=== PATIENT | male | born 1955 | race Caucasian/White ===

== ENCOUNTER 2016-10-04 20:07 | Emergency (ER) | payer OTHER ==
[2016-10-04 20:32] VITALS: BP 147/78
--- NOTE | 2016-10-04 20:56 | EDM.PDOC ---
ED HPI GENERAL MEDICAL PROBLEM - General Chief Complaint: Lower Extremity Injury/Pain Stated Complaint: RIGHT LEG INJURY Time Seen by Provider: 10/04/16 20:19 Source of Information: Reports: Patient History Limitations: Reports: No Limitations - History of Present Illness INITIAL COMMENTS - FREE TEXT/NARRATIVE: This is a 61 year old male. Was roping a calf and the calf got around the back side of him and the horse and he let the rope go and slide off to the side of the saddle and hooked his right leg over the saddle and felt a pop in his right hamstring. Painful in the hamstring and having a difficult time straightening his right leg. No other acute symptoms or injury. right posterior upper thigh Pain Score (Numeric/FACES): 2 - Related Data Allergies Allergy/AdvReac Type Severity Reaction Status Date / Time No Known Allergies Allergy Verified 10/04/16 20:32 Home Meds: Home Meds Celecoxib [CeleBREX] 200 mg PO DAILY 07/21/15 [History] Fluticasone Propionate [Flonase] 1 spray INH ASDIRECTED 07/21/15 [History] Past Medical History HEENT History: Reports: Other (See Below) Other HEENT History: basal cell carcinoma with skin grafting Respiratory History: Reports: Other (See Below) Other Respiratory History: seasonal allergies Gastrointestinal History: Reports: Diverticulosis Musculoskeletal History: Reports: Arthritis, Other (See Below) Other Musculoskeletal History: left foot surgery; right ankle replacement; right roator surgery; arhtritis of feet(on Celebrex) Oncologic (Cancer) History: Reports: Basal Cell Carcinoma Other Oncologic History: to ear - Past Surgical History HEENT Surgical History: Reports: Adenoidectomy, Tonsillectomy GI Surgical History: Reports: Other (See Below) Other GI Surgeries/Procedures: surgery for diverticulitis Musculoskeletal Surgical History: Reports: Shoulder Surgery, Other (See Below) Other Musculoskeletal Surgeries/Procedures:: ankle replacement, bunion removed, hammer toe straightened, pelvic surgery with plate/pin Dermatological Surgical History: Reports: Skin Graft Social & Family History - Family History Family Medical History: Noncontributory - Tobacco Use Smoking Status *Q: Never Smoker Second Hand Smoke Exposure: No - Caffeine Use Caffeine Use: Reports: Coffee - Recreational Drug Use Recreational Drug Use: No Review of Systems - Review of Systems Review Of Systems: See Below Constitutional: Reports: No Symptoms Eyes: Reports: No Symptoms Ears: Reports: No Symptoms Nose: Reports: No Symptoms Mouth/Throat: Reports: No Symptoms Respiratory: Reports: No Symptoms Cardiovascular: Reports: No Symptoms GI/Abdominal: Reports: No Symptoms Genitourinary: Reports: No Symptoms Musculoskeletal: Reports: Other (as per HPI) Skin: Reports: No Symptoms Neurological: Reports: No Symptoms Psychiatric: Reports: No Symptoms ED EXAM, GENERAL - Physical Exam Exam: See Below Exam Limited By: No Limitations General Appearance: Alert, WD/WN, No Apparent Distress Ears: Normal External Exam Nose: Normal Inspection Throat/Mouth: Normal Inspection Head: Normocephalic Neck: Supple Respiratory/Chest: No Respiratory Distress Back Exam: Full Range of Motion Extremities: Other (Right hamstring is tender and in the belly of the muscle it appears to have a mild spasm, up into the pelvis area it is very tender noted but the medial side of the hamstring is intact and not tender just the lateral side and the insertion and the lateral belly are painful. He will not straighten his right leg because of the pain.) Neurological: Alert, Oriented Psychiatric: Normal Affect, Normal Mood Skin Exam: Warm, Dry Course - Vital Signs Last Recorded V/S: Last Vital Signs Temp 98.4 F 10/04/16 20:25 Pulse 100 10/04/16 20:25 Resp 18 10/04/16 20:25 BP 147/78 H 10/04/16 20:25 Pulse Ox 97 10/04/16 20:25 Departure - Departure Time of Disposition: 20:58 Disposition: Home, Self-Care 01 Condition: Good Clinical Impression: Muscle spasm Hamstring muscle strain Qualifiers: Encounter type: initial encounter Laterality: right Qualified Code(s): S76.311A - Strain of muscle, fascia and tendon of the posterior muscle group at thigh level, right thigh, initial encounter Partial hamstring tear Qualifiers: Encounter type: initial encounter Laterality: right Qualified Code(s): S76.311A - Strain of muscle, fascia and tendon of the posterior muscle group at thigh level, right thigh, initial encounter - Discharge Information Referrals: Francesco Padron MD [Physician] - Forms: ED Department Discharge Additional Instructions: Ice the hamstring down on and off over the next 48 hours, Attempt to gently straighten the right leg which will help with the spasms, Take the medication for spasms and pain as needed, follow up with Dr. Aguiar on Thursday and call his office Thursday AM for the appointment, return to the ER if needed
== END 2016-10-04 21:20 | disposition home or self-care (01) ==
LOC: JD.ED 20:07
DX: S76.311A Strain of muscle, fascia and tendon of the posterior muscle group at thigh level, right thigh, initial encounter (principal); M62.838 Other muscle spasm; Z79.899 Other long term (current) drug therapy; Z98.890 Other specified postprocedural states; Z96.669 Presence of unspecified artificial ankle joint; X50.9XXA Other and unspecified overexertion or strenuous movements or postures, initial encounter
CPT/HCPCS: 99283

== ENCOUNTER 2020-05-14 09:11 | Day surgery (SDC) | payer MEDICARE, BC ==
[~2020-05-14 09:11] MED LIST: Acetaminophen 325 MG Tab PO SCH; Lactated Ringers 1,000 ML IV SCH; Lidocaine 1%/Sod Bicarbonate in NS 8.4% 1 ML Syringe IDERM PRN; Pregabalin 25 MG Cap PO SCH; Sodium Chloride 0.9% 10 ML Syringe FLUSH PRN; oxyCODONE ER 10 MG TAB.ER PO SCH
--- NOTE | 2020-05-14 09:37 | PCM.PREANE ---
Preanesthetic Assessment - Procedure Proposed Procedure: Left total knee arthroplasty - Anesthesia/Transfusion/Family Hx Anesthesia History: Prior Anesthesia Without Reaction Family History of Anesthesia Reaction: No Transfusion History: No Prior Transfusion(s) - Review of Systems General: No Symptoms Pulmonary: No Symptoms Cardiovascular: No Symptoms Gastrointestinal: No Symptoms Neurological: No Symptoms Other: Reports: None, Liver Problems (History of infection) - Physical Assessment NPO Status Date: 05/13/20 NPO Status Time: 00:00 Height: 1.85 m Weight: 100 kg ASA Class: 2 Mental Status: Alert & Oriented x3 Airway Class: Mallampati = 1 Dentition: Reports: [place](s) Thyro-Mental Finger Breadths: 3 Mouth Opening Finger Breadths: 3 ROM/Head Extension: Full Lungs: Clear to Auscultation, Normal Respiratory Effort Cardiovascular: Regular Rate, Regular Rhythm - Imaging/EKG Impressions: EKG SR rate 54 - Allergies Allergies/Adverse Reactions: Allergies Allergy/AdvReac Type Severity Reaction Status Date / Time No Known Allergies Allergy Verified 05/13/20 10:14 - Anesthesia Plan Pre-Op Medication Ordered: None - Acknowledgements Anesthesia Type Planned: Spinal Pt an Appropriate Candidate for the Planned Anesthesia: Yes Alternatives and Risks of Anesthesia Discussed w Pt/Guardian: Yes Pt/Guardian Understands and Agrees with Anesthesia Plan: Yes PreAnesthesia Questionnaire HEENT History: Reports: Impaired Vision, Other (See Below) Other HEENT History: wears glasses Cardiovascular History: Reports: High Cholesterol Respiratory History: Reports: None Gastrointestinal History: Reports: Diverticulosis, GERD, Hemorrhoids, Other (See Below) Other Gastrointestinal History: diverticulitis, liver infection Genitourinary History: Reports: BPH, Other (See Below) Other Genitourinary History: nocturia INSULATION NOZZLEMAN History: Reports: None Musculoskeletal History: Reports: Arthritis, Other (See Below) Other Musculoskeletal History: left foot surgery; right ankle replacement; right roator surgery; arhtritis of feet, traumatic accident resulting in sympasis pubic disruption, SI joint dislocation, left scapular fracture, pelvic fracture Neurological History: Reports: None Psychiatric History: Reports: None Endocrine/Metabolic History: Reports: None Hematologic History: Reports: None Immunologic History: Reports: None Oncologic (Cancer) History: Reports: Basal Cell Carcinoma Other Oncologic History: to ear Dermatologic History: Reports: None - Infectious Disease History Infectious Disease History: Reports: Chicken Pox, Measles - Past Surgical History HEENT Surgical History: Reports: Adenoidectomy, Tonsillectomy Cardiovascular Surgical History: Reports: None Respiratory Surgical History: Reports: None GI Surgical History: Reports: Colonoscopy, Other (See Below) Other GI Surgeries/Procedures: surgery for diverticulitis, colon surgery Female Surgical History: Reports: None Male Surgical History: Reports: None Endocrine Surgical History: Reports: None Neurological Surgical History: Reports: None Musculoskeletal Surgical History: Reports: Shoulder Surgery, Other (See Below) Other Musculoskeletal Surgeries/Procedures:: ankle replacement, bunion removed, hammer toe straightened, pelvic surgery with plate/pin Dermatological Surgical History: Reports: None, Skin Graft - SUBSTANCE USE Tobacco Use Status *Q: Former Tobacco User Tobacco Use Within Last Twelve Months: Snuff/Dip Second Hand Smoke Exposure: No Days Per Week of Alcohol Use: 3 Number of Drinks Per Day: 2 Total Drinks Per Week: 6 Recreational Drug Use History: No - HOME MEDS Home Medications: Home Meds Celecoxib 200 mg PO DAILY 05/13/20 [History] Cholecalciferol (Vitamin D3) [Vitamin D3] 5,000 unit PO DAILY 05/13/20 [History] Fluticasone Propionate [Flonase] 1 dose NASBOTH DAILY PRN 05/13/20 [History] Glucosam/Chond/Collagen/Hyalur [Glucosamine Chondroitin] 2 tab PO DAILY 05/13/20 [History] Psyllium with Sucrose [Metamucil] 1 dose PO DAILY 05/13/20 [History] Sertraline HCl [Zoloft] 50 mg PO DAILY 05/13/20 [History] Sildenafil [Viagra] 100 mg PO ASDIRECTED PRN 05/13/20 [History] Tamsulosin HCl [Flomax] 0.4 mg PO DAILY 05/13/20 [History] Aspirin [Aspirin EC] 325 mg PO BID #84 tab 05/14/20 [Rx] Cyclobenzaprine [Flexeril] 10 mg PO BID PRN #20 tab 05/14/20 [Rx] oxyCODONE 5 - 10 mg PO Q4H PRN #40 tab 05/14/20 [Rx] - CURRENT (IN HOUSE) MEDS Current Meds: Current Medications Acetaminophen (Tylenol) 975 mg PO ONETIME WILLIAMS Stop: 05/14/20 12:00 Morphine Sulfate 8 mg/Epinephrine HCl 0.3 mg/Cefuroxime Sodium 750 mg/Ketorolac Tromethamine 30 mg/Sodium Chloride 7.9 ml 0 mg .XX ASDIRECTED PRN PRN Reason: Pain Stop: 05/14/20 18:00 Lactated Ringer's (Ringers, Lactated) 1,000 mls @ 125 mls/hr IV ASDIRECTED WILLIAMS Stop: 05/14/20 23:00 Lidocaine/Sodium Bicarbonate (Buffered Lidocaine 1% In Ns 8.4%) 0.25 ml IDERM ONETIME PRN PRN Reason: Prior to IV Start Stop: 05/14/20 18:00 Oxycodone HCl (Oxycontin) 10 mg PO ONETIME WILLIAMS Stop: 05/14/20 12:00 Pregabalin (Lyrica) 50 mg PO ONETIME WILLIAMS Stop: 05/14/20 12:00 Sodium Chloride (Saline Flush) 10 ml FLUSH ASDIRECTED PRN PRN Reason: Keep Vein Open Stop: 05/14/20 18:00
[2020-05-14] MEDS ORDERED: Ondansetron 4 MG/2 ML SDV ONE (09:48)
[2020-05-14] MEDS ORDERED: Lidocaine 1% 4 ML ONE (09:49)
[2020-05-14] MEDS ORDERED: Midazolam 1 MG/ML 2 ML SDV ONE (09:49)
[2020-05-14] MEDS ORDERED: Propofol 200 MG/20 ML SDV ONE ×4 (09:49→11:29)
[2020-05-14] MEDS ORDERED: Ketorolac 30 MG/ML SDV ONE (09:49)
[2020-05-14] MEDS ORDERED: fentaNYL 100 MCG/2 ML SDV ONE (09:49)
[2020-05-14] MEDS ORDERED: ceFAZolin 1 GM Vial ONE (09:49)
[2020-05-14] MEDS ORDERED: ePHEDrine 50 MG/ML SDV ONE (10:43)
[2020-05-14] MEDS: Vancomycin 1 GM SDV ONE ×2 (10:56→11:43)
[2020-05-14] MEDS: Morphine 8 MG, EPINEPHrine 0.3 MG, Cefuroxime 750 MG, Ketorolac 30 MG, Sodium Chloride ... PRN ×10 (10:57→11:37)
--- NOTE | 2020-05-14 12:09 | PCM.OPNOTE ---
- General Post-Op/Procedure Note Date of Surgery/Procedure: 05/14/20 Operative Procedure(s): left total knee arthroplasty with [employer] Pre Op Diagnosis: left knee osteoarthrosis Post-Op Diagnosis: Same Anesthesia Technique: Local, MAC, Spinal Primary Surgeon: Francesco Padron Anesthesia Provider: David Flowers Test Desk Supervisor: Breanne Harris Test Desk Supervisor: Phylicia Isaac EBL in mLs: 150 Complications: None Condition: Good Free Text/Narrative:: 07/11 12mm [id number]
--- NOTE | 2020-05-14 12:12 | PCM.POSTAN ---
POST ANESTHESIA ASSESSMENT - MENTAL STATUS Mental Status: Alert, Oriented - VITAL SIGNS Vital Signs: Last Vital Signs Temp 36.5 C 05/14/20 09:10 Pulse 56 L 05/14/20 09:10 Resp 16 05/14/20 09:10 BP 122/82 05/14/20 09:10 Pulse Ox 97 05/14/20 09:10 - RESPIRATORY Respiratory Status: Respiratory Rate WNL, Airway Patent, O2 Saturation Stable - CARDIOVASCULAR CV Status: Pulse Rate WNL, Blood Pressure Stable - GASTROINTESTINAL GI Status: No Symptoms - PAIN Pain Score: 0 - POST OP HYDRATION Hydration Status: Adequate & Stable - OBSERVATIONS Free Text/Narrative:: no anesthesia complications noted
[2020-05-14] MEDS ORDERED: Ropivacaine 0.5% 5 MG/ML 30 ML SDV ONE (12:27)
[2020-05-14] MEDS ORDERED: EPINEPHrine 1 MG/ML SDV ONE (12:28)
--- NOTE | 2020-05-14 12:52 | PCM.SN.2 ---
- Free Text/Narrative Note: Left selective femoral nerve block at the adductor canal for post-procedure pain control under US guidance requested by Dr. Padron. Date:05/14/2020 Time Out: 1237 Start: 1237 End: 1242 Chart reviewed. Consent signed. Questions answered. Appropriate monitors applied. Time out performed. Left mid-shaft femur identified with ultrasound, scanning medially of femur, the femoral artery in the adductor canal visualized, and the femoral nerve located laterally to the artery. The skin was prepped lateral to the ultrasound probe with chlorahexadine times two. The 21ga 4 insulated block needle was inserted under direct ultrasound guidance into the adductor canal. 25mL of 0.5% ropivacaine with 1:200,000 epinephrine was injected circumferentially around the nerve with intermittent negative aspiration noted. Patient tolerated the procedure well. Sterile technique noted along with sterile gloves, mask, and sterile probe cover. See picture on progress note and vital signs on nurses notes. Block completed in PACU. Dane Marie CRNA
--- NOTE | 2020-05-14 13:14 | CR ---
Left knee: AP and crosstable lateral views left knee were obtained. Comparison: Prior left knee CT study of 05/04/20. Left knee prosthesis is noted. Components are aligned. Patellar prosthesis is also noted. Underlying bony structures are intact. Soft tissue air is noted from the surgical procedure. Impression: 1. Satisfactory postop radiographic appearance of recently placed left knee prosthesis. Diagnostic code #2
--- NOTE | 2020-05-14 13:31 | PCM48HPAN ---
Post Anesthesia Note - EVALUATION WITHIN 48HRS OF ANESTHETIC Vital Signs in Normal Range: Yes Patient Participated in Evaluation: Yes Respiratory Function Stable: Yes Airway Patent: Yes Cardiovascular Function Stable: Yes Hydration Status Stable: Yes Pain Control Satisfactory: Yes Nausea and Vomiting Control Satisfactory: Yes Mental Status Recovered: Yes Vital Signs: Last Vital Signs Temp 36.4 C 05/14/20 13:05 Pulse 58 L 05/14/20 13:13 Resp 16 05/14/20 13:13 BP 102/56 L 05/14/20 13:13 Pulse Ox 93 L 05/14/20 13:13 - COMMENTS/OBSERVATIONS Free Text/Narrative:: no anesthesia complications noted
[2020-05-14] MEDS ORDERED: oxyCODONE 5 MG Tab PO PRN (15:17)
[2020-05-14 16:12] VITALS: BP 127/83; PULSE 83
--- NOTE | 2020-05-15 16:28 | OR ---
DATE OF OPERATION: 05/14/2020 SURGEON: Francesco Padron MD OPERATION PERFORMED: Left total knee arthroplasty with [employer]. PREOPERATIVE DIAGNOSIS: Left knee osteoarthrosis. POSTOPERATIVE DIAGNOSIS: Left knee osteoarthrosis. ANESTHESIA: Local MAC with spinal. ANESTHESIA PROVIDER: David Flowers CRNA ASSISTANTS: Breanne Harris PA-C, and Phylicia Isaac LPN ESTIMATED BLOOD LOSS: 150 mL. COMPLICATIONS: None. CONDITION: Stable. IMPLANTS: 1. Fortuna size 5 press-fit CR femur. 2. Edwige size 5 press-fit tibial baseplate. 3. Fortuna size 5, 12 mm CS polyethylene insert. 4. Fortuna size 35 x 10 mm press-fit asymmetric patella. DESCRIPTION OF PROCEDURE: The patient was identified in the preoperative holding area. Proper site was marked and identified by the surgeon. The patient was taken back to the operating theater where after adequate anesthesia, the patient's left lower extremity had a nonsterile tourniquet applied and was then sterilely prepped and draped in the usual sterile fashion. OR time-out was performed. The patient received 2 grams of IV Ancef. The leg varner was then placed in left lower extremity. At this time, standard anterior incision was made. Medial parapatellar arthrotomy was created. Deep fibers of the MCL were raised and anterior fat pad was resected. Attention was turned to the patella. Patella measured 24 and resected to a 14 for a 35 x 10 mm patella. Drill holes were then drilled and found to be adequate. Attention was turned to the femur. Two 4.0 pins were placed in the femur for the Edwige [employer] robotic array. Two more were placed in the crest of the tibia 3 fingerbreadths below the tibial tubercle and the array was placed. Hip center rotation was obtained. Medial and lateral malleoli were marked. 40 points were then taken off the femur and the tibia for the Edwige Jesus robotic plan. The patient's knee was brought into full extension. He was noted to have an 18-degree varus deformity. At this time, he had 15 mm and 21 mm gaps in extension, flexion gaps were then taken. We were able to then manipulate the implant on the Edwige Jesus robotic plan to make 18 mm gaps both in both flexion and extension on medial and lateral side. At this time, the Jesus robotic arm was brought in. The anterior posterior and anterior chamfer and tibial cuts were completed. The saw blades were switched and then the distal femoral cut and the posterior chamfer cut were then completed. It was found to be adequate resection. All bony fragments were removed. The medial and lateral menisci were then resected, posterior osteophytes were removed. The size 5 trial baseplate was then placed, size 5 trial femur was placed. We trialed 11 first and it was found to have a minor amount of varus and valgus instability, so a 12 mm poly was placed. The patient had no instability and full range of motion with just a minor amount of recurvatum of roughly 4 degrees, which he started with 6 degrees. At this time, the trial implants were removed after the drill holes were drilled on the femur and the tibia was stamped and drilled in the proper rotation. The size 5 tibia was impacted into place, size 5 femur was impacted into place. The 5 mm CS polyethylene insert was impacted into place. The patient's knee was brought into full extension and a 35 x 10 mm asymmetric patella was press-fit into place. Tourniquet was deflated. All bleeders were cauterized. 400 mL of Irrisept irrigation were irrigated through the knee along with 1 liter of pulse lavage irrigation with Ancef. Periarticular injection was completed. Topical tranexamic acid and vancomycin powder were applied. #2 barbed suture was used for closure of the medial parapatellar arthrotomy, 2-0 Vicryl was used subcutaneously along with Stratafix and Prineo was used for skin closure. The patient was placed in a sterile soft dressing and sent to the PACU in stable condition. MMODAL /[id number]
== END 2020-05-14 15:56 | disposition home or self-care (01) ==
LOC: JD.SDS 09:11
PROVIDERS: ATTEND Orthopaedic Surgery
DX: M17.12 Unilateral primary osteoarthritis, left knee (principal); M25.762 Osteophyte, left knee; G89.29 Other chronic pain; N40.1 Benign prostatic hyperplasia with lower urinary tract symptoms; R35.1 Nocturia; E78.2 Mixed hyperlipidemia; Z87.891 Personal history of nicotine dependence; Z79.899 Other long term (current) drug therapy; G89.18 Other acute postprocedural pain
CPT/HCPCS: 27447; 73560; 97116; 97161; 97165; A9270; C1713; C1776; J0171; J0690; J0697; J1885; J2250; J2270; J2405; J2704; J2795; J3010; J3370; J7120; 01402; 64450

== ENCOUNTER → 2021-01-24 | Day surgery (SDC) | payer MEDICARE, BC ==
[~2021-01-24] MED LIST changes: -Acetaminophen 325 MG Tab PO SCH; +Bupivacaine 0.25% 10 ML SDV ONE; +Dexamethasone 4 MG/ML 5 ML MDV ONE; +HYDROmorphone 0.5 MG/0.5 ML Syringe IVPUSH PRN; +Ketorolac 30 MG/ML SDV ONE; +Lactated Ringers 1,000 ML ONE; +Midazolam 1 MG/ML 2 ML SDV ONE; +Ondansetron 4 MG/2 ML SDV IVPUSH PRN; +Ondansetron 4 MG/2 ML SDV ONE; -Pregabalin 25 MG Cap PO SCH; +Propofol 200 MG/20 ML SDV ONE; +Rocuronium 50 MG/5 ML Vial ONE; +ceFAZolin 1 GM Vial ONE; +ePHEDrine 50 MG/ML SDV ONE; +fentaNYL 100 MCG/2 ML SDV IVPUSH PRN; +fentaNYL 100 MCG/2 ML SDV ONE; +oxyCODONE 5 MG Tab PO PRN; -oxyCODONE ER 10 MG TAB.ER PO SCH
--- NOTE | 2021-01-24 08:53 | PCM.PREANE ---
Preanesthetic Assessment - Anesthesia/Transfusion/Family Hx Anesthesia History: Prior Anesthesia Without Reaction Family History of Anesthesia Reaction: No Transfusion History: No Prior Transfusion(s) - Review of Systems General: No Symptoms Pulmonary: No Symptoms Cardiovascular: No Symptoms Gastrointestinal: No Symptoms Neurological: No Symptoms Other: Reports: Depression, Anxiety - Physical Assessment NPO Status Date: 01/23/21 NPO Status Time: 21:00 Vital Signs: Last Vital Signs Temp 97.9 F 01/24/21 08:05 Pulse Resp 16 01/24/21 08:05 BP 127/84 01/24/21 08:05 Pulse Ox 97 01/24/21 08:05 Height: 6 ft 1 in Weight: 102 kg ASA Class: 2 Mental Status: Alert & Oriented x3 Airway Class: Mallampati = 1 Dentition: Reports: Normal Dentition Thyro-Mental Finger Breadths: 3 Mouth Opening Finger Breadths: 3 ROM/Head Extension: Full Lungs: Clear to Auscultation, Normal Respiratory Effort Cardiovascular: Regular Rate, Regular Rhythm - Allergies Allergies/Adverse Reactions: Allergies Allergy/AdvReac Type Severity Reaction Status Date / Time No Known Allergies Allergy Verified 01/24/21 08:29 - Blood Blood Available: No - Acknowledgements Anesthesia Type Planned: General Anesthesia Pt an Appropriate Candidate for the Planned Anesthesia: Yes Alternatives and Risks of Anesthesia Discussed w Pt/Guardian: Yes Pt/Guardian Understands and Agrees with Anesthesia Plan: Yes PreAnesthesia Questionnaire HEENT History: Reports: Hard of Hearing, Impaired Vision, Other (See Below) Other HEENT History: has glasses, hearing aids Cardiovascular History: Reports: High Cholesterol Respiratory History: Reports: None Gastrointestinal History: Reports: Diverticulosis, GERD, Hemorrhoids, Other (See Below) Other Gastrointestinal History: diverticulitis, liver infection, colon surgery, polyps, hemorrhoids Genitourinary History: Reports: BPH, Other (See Below) Other Genitourinary History: nocturia CLINICAL APPEALS REVIEWER History: Reports: None Musculoskeletal History: Reports: Arthritis, Osteoarthritis, Other (See Below) Other Musculoskeletal History: SI joint dislocation, diverticulitis, left scapula fracture, symphysis pubic disruption Neurological History: Reports: None Psychiatric History: Reports: Anxiety, Depression Hematologic History: Reports: None Immunologic History: Reports: None Oncologic (Cancer) History: Reports: Basal Cell Carcinoma Other Oncologic History: to ear Dermatologic History: Reports: Other (See Below) Other Dermatologic History: basal cell carcinoma - Infectious Disease History Infectious Disease History: Reports: Chicken Pox, Measles - Past Surgical History HEENT Surgical History: Reports: Adenoidectomy, Tonsillectomy Cardiovascular Surgical History: Reports: None Respiratory Surgical History: Reports: None GI Surgical History: Reports: Other (See Below) Other GI Surgeries/Procedures: surgery for diverticulitis Female Surgical History: Reports: None Male Surgical History: Reports: None Endocrine Surgical History: Reports: None Neurological Surgical History: Reports: None Musculoskeletal Surgical History: Reports: Knee Replacement, Shoulder Surgery, Other (See Below) Other Musculoskeletal Surgeries/Procedures:: ankle replacement, bunion removed, hammer toe straightened, pelvic surgery with plate/pin Oncologic Surgical History: Reports: None Dermatological Surgical History: Reports: Skin Graft - SUBSTANCE USE Tobacco Use Status *Q: Former Tobacco User Tobacco Use Within Last Twelve Months: No Second Hand Smoke Exposure: No Days Per Week of Alcohol Use: 7 Number of Drinks Per Day: 2 (beer and whiskey) Total Drinks Per Week: 14 Recreational Drug Use History: No - HOME MEDS Home Medications: Home Meds Celecoxib 200 mg PO DAILY 05/13/20 [History] Cholecalciferol (Vitamin D3) [Vitamin D3] 5,000 unit PO DAILY 05/13/20 [History] Fluticasone Propionate [Flonase] 1 dose NASBOTH DAILY PRN 05/13/20 [History] Psyllium with Sucrose [Metamucil] 1 dose PO DAILY PRN 05/13/20 [History] Sertraline HCl [Zoloft] 50 mg PO DAILY 05/13/20 [History] Sildenafil [Viagra] 100 mg PO ASDIRECTED PRN 05/13/20 [History] Tamsulosin HCl [Flomax] 0.4 mg PO DAILY 05/13/20 [History] Acetaminophen [Tylenol Arthritis] 650 mg PO Q4H PRN 01/23/21 [History] Diclofenac Sodium [Voltaren 1% Gel] 1 dose TOP TID PRN 01/23/21 [History] Famotidine [Pepcid] 20 mg PO DAILY 01/23/21 [History] oxyCODONE 5 - 10 mg PO Q4H PRN #30 tab 01/23/21 [Rx] - CURRENT (IN HOUSE) MEDS Current Meds: Current Medications Lactated Ringer's (Ringers, Lactated) 1,000 mls @ 125 mls/hr IV ASDIRECTED WILLIAMS Stop: 01/24/21 23:00 Last Admin: 01/24/21 08:33 Dose: 125 mls/hr Documented by: Lidocaine/Sodium Bicarbonate (Lidocaine 1%/Sod Bicarbonate In Ns 8.4% 1 Ml Syringe) 0.25 ml IDERM ONETIME PRN PRN Reason: Prior to IV Start Stop: 01/24/21 16:00 Sodium Chloride (Sodium Chloride 0.9% 10 Ml Syringe) 10 ml FLUSH ASDIRECTED PRN PRN Reason: Keep Vein Open Stop: 01/24/21 18:00 Discontinued Medications Fentanyl (Fentanyl 100 Mcg/2 Ml Sdv) Confirm Administered Dose 100 mcg .ROUTE .STK-MED ONE Stop: 01/24/21 08:20 Lidocaine HCl (Lidocaine 1% 5 Ml Sdv) Confirm Administered Dose 5 ml .ROUTE .STK-MED ONE Stop: 01/24/21 08:20 Midazolam HCl (Midazolam 1 Mg/Ml 2 Ml Sdv) Confirm Administered Dose 2 mg .ROUTE .STK-MED ONE Stop: 01/24/21 08:20 Propofol (Propofol 200 Mg/20 Ml Sdv) Confirm Administered Dose 200 mg .ROUTE . STK-MED ONE Stop: 01/24/21 08:19
--- NOTE | 2021-01-24 11:41 | PCM.POSTAN ---
POST ANESTHESIA ASSESSMENT - MENTAL STATUS Mental Status: Alert, Oriented - VITAL SIGNS Vital Signs: Last Vital Signs Temp 97.9 F 01/24/21 08:05 Pulse Resp 16 01/24/21 08:05 BP 127/84 01/24/21 08:05 Pulse Ox 97 01/24/21 08:05 127/53 HR 83 RR 14 97.7 97% 6 liters - RESPIRATORY Respiratory Status: Respiratory Rate WNL, Airway Patent, O2 Saturation Stable - CARDIOVASCULAR CV Status: Pulse Rate WNL, Blood Pressure Stable - GASTROINTESTINAL GI Status: No Symptoms - PAIN Pain Score: 0 - POST OP HYDRATION Hydration Status: Adequate & Stable
--- NOTE | 2021-01-24 11:52 | CR ---
Right wrist: 5 fluoroscopic spot views were obtained of the right wrist centered to the first and second metacarpals. Study was obtained utilizing C-arm device. Study shows prior resection of the trapezium. Anchors are seen within the first and second metacarpals. Fluoroscopy time is given as 9.3 seconds. Impression: 1. Procedural exam as described above. Diagnostic code #2
--- NOTE | 2021-01-24 13:18 | PCM48HPAN ---
Post Anesthesia Note - EVALUATION WITHIN 48HRS OF ANESTHETIC Vital Signs in Normal Range: Yes Patient Participated in Evaluation: Yes Respiratory Function Stable: Yes Airway Patent: Yes Cardiovascular Function Stable: Yes Hydration Status Stable: Yes Pain Control Satisfactory: Yes Nausea and Vomiting Control Satisfactory: Yes Mental Status Recovered: Yes Vital Signs: Last Vital Signs Temp 97.8 F 01/24/21 12:17 Pulse 61 01/24/21 12:17 Resp 16 01/24/21 12:17 BP 133/74 01/24/21 12:17 Pulse Ox 95 01/24/21 12:17
[2021-01-24 16:32] VITALS: BP 135/78; PULSE 61
--- NOTE | 2021-02-08 06:47 | PCM.OPNOTE ---
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
--- NOTE | 2021-02-08 07:42 | OR ---
DATE OF OPERATION: 01/24/2021 SURGEON: Francesco Padron MD OPERATION PERFORMED: Right wrist trapeziectomy with suspension TightRope arthroplasty. PREOPERATIVE DIAGNOSIS: Right basilar thumb joint arthritis. POSTOPERATIVE DIAGNOSIS: Right basilar thumb joint arthritis. ANESTHESIA: MAC with regional block. ANESTHESIA PROVIDER: Raoul Rahman. ASSISTANTS: Breanne Harris PA-C ESTIMATED BLOOD LOSS: 5 mL. COMPLICATIONS: None. CONDITION: Stable. DESCRIPTION OF PROCEDURE: The patient was identified in the preoperative holding area. Proper site was marked and identified by the surgeon. The patient was taken back to operating theater where after adequate anesthesia right upper extremity was sterilely prepped and draped in the usual sterile fashion. OR time-out was performed. The patient received 2 g IV Ancef. Right upper extremity was exsanguinated. Tourniquet was insufflated to 200 mmHg. Standard dorsal incision was made over the trapezium. The tendons were retracted, and neurovascular bundle was protected proximally. Capsulotomy was then performed as well as partial capsulectomy both on the volar and dorsal sides of the trapezium. The trapezium was identified and with the use of a rongeur as well as an osteotome, the trapezium was completely removed and made sure to get all bony fragments utilizing C-arm to make sure there were none left. Once this was completed, the guide pin for the Arthrex TightRope suspension arthroplasty was placed at the base of the first metacarpal and placed up into the metaphyseal region of the second metacarpal. A small incision was made over the second metacarpal. The pin was then brought through, and the Endobutton was placed on the base of the first metacarpal. Another one was placed on the second metacarpal. Proper tension was then applied making sure the patient's palm could good flat and oppose the thumb with small digit. This was then tied in the proper tension, had good bounce back effect with no signs of loosening. At this time, adequate saline was irrigated through both incisions. 4-0 nylon was used for closure of the second metacarpal incision. 3-0 Vicryl was used over the other incision as well as Monocryl. The patient had a sterile soft dressing applied as well as radial thumb spica splint and then was sent to PACU in stable condition. [id number] /[id number]
== END | disposition home or self-care (01) ==
LOC: JD.SDS 07:52
PROVIDERS: ATTEND Orthopaedic Surgery
DX: M18.11 Unilateral primary osteoarthritis of first carpometacarpal joint, right hand (principal); E78.2 Mixed hyperlipidemia; K21.9 Gastro-esophageal reflux disease without esophagitis; Z79.899 Other long term (current) drug therapy; Z98.890 Other specified postprocedural states; Z87.891 Personal history of nicotine dependence
CPT/HCPCS: 25447; 76000; A9270; C1713; J0690; J1100; J1885; J2250; J2405; J2704; J2710; J3010; J3490; J7120; 01830

== ENCOUNTER 2024-08-17 06:00 | Day surgery (SDC) | payer MEDICARE ==
[~2024-08-17 06:00] MED LIST changes: -Bupivacaine 0.25% 10 ML SDV ONE; -Dexamethasone 4 MG/ML 5 ML MDV ONE; -HYDROmorphone 0.5 MG/0.5 ML Syringe IVPUSH PRN; -Ketorolac 30 MG/ML SDV ONE; -Lactated Ringers 1,000 ML ONE; -Lidocaine 1%/Sod Bicarbonate in NS 8.4% 1 ML Syringe IDERM PRN; -Midazolam 1 MG/ML 2 ML SDV ONE; -Ondansetron 4 MG/2 ML SDV IVPUSH PRN; -Ondansetron 4 MG/2 ML SDV ONE; -Propofol 200 MG/20 ML SDV ONE; -Rocuronium 50 MG/5 ML Vial ONE; +Sodium Chloride 0.9% 10 ML Syringe FLUSH SCH; -ceFAZolin 1 GM Vial ONE; -ePHEDrine 50 MG/ML SDV ONE; -fentaNYL 100 MCG/2 ML SDV IVPUSH PRN; -fentaNYL 100 MCG/2 ML SDV ONE; -oxyCODONE 5 MG Tab PO PRN
[2024-08-17] MEDS ORDERED: Sodium Chloride 0.9% 100 ML IV ONE (06:01)
[2024-08-17] MEDS ORDERED: Rocuronium 50 MG/5 ML Vial ONE (06:06)
[2024-08-17] MEDS ORDERED: Lidocaine 1% 4 ML ONE (06:06)
[2024-08-17] MEDS ORDERED: Ondansetron 4 MG/2 ML SDV ONE (06:06)
[2024-08-17] MEDS ORDERED: ceFAZolin 2 GM Vial ONE (06:06)
[2024-08-17] MEDS ORDERED: Propofol 200 MG/20 ML SDV ONE ×2 (06:07→08:30)
[2024-08-17] MEDS ORDERED: fentaNYL 100 MCG/2 ML SDV ONE (06:07)
[2024-08-17] MEDS ORDERED: Midazolam 1 MG/ML 2 ML SDV ONE (06:07)
[2024-08-17] MEDS ORDERED: Ropivacaine 0.5% 5 MG/ML 30 ML SDV ONE (06:07)
[2024-08-17] MEDS ORDERED: dexmedeTOMIDine HCl 200 MCG/2 ML SDV ONE (06:07)
[2024-08-17] MEDS: Lactated Ringers 1,000 ML IV SCH (06:15)
[2024-08-17] MEDS ORDERED: Bupivacaine 0.25% 10 ML SDV ONE (06:17)
[2024-08-17] MEDS: oxyCODONE ER 10 MG TAB.ER PO SCH (06:47)
[2024-08-17] MEDS: Pregabalin 25 MG Cap PO SCH (06:47)
[2024-08-17] MEDS: Acetaminophen 325 MG Tab PO SCH (06:47)
[2024-08-17] MEDS ORDERED: fentaNYL 100 MCG/2 ML SDV IVPUSH PRN (06:53)
[2024-08-17] MEDS ORDERED: Ondansetron 4 MG/2 ML SDV IVPUSH PRN (06:53)
[2024-08-17] MEDS ORDERED: HYDROmorphone 0.5 MG/0.5 ML Syringe IVPUSH PRN (06:53)
[2024-08-17] MEDS ORDERED: ePHEDrine 50 MG/ML SDV ONE ×2 (07:23→08:23)
[2024-08-17] MEDS ORDERED: Sugammadex Sodium 200 MG/2 ML VIAL IV ONE (07:25)
[2024-08-17] MEDS ORDERED: Ketorolac 30 MG/ML SDV ONE (07:25)
[2024-08-17] MEDS ORDERED: Lactated Ringers 1,000 ML ONE (07:34)
[2024-08-17] MEDS: VANCOmycin 1 GM SDV ONE (08:25)
[2024-08-17] MEDS: Tranexamic Acid 1,000 MG/10 ML Vial ONE (08:25)
[2024-08-17] MEDS: oxyCODONE 5 MG Tab PO SCH (10:54)
[2024-08-17 11:51] VITALS: BP 101/72; PULSE 65
== END 2024-08-17 12:20 | disposition home or self-care (01) ==
LOC: JD.SDS 06:00
PROVIDERS: ATTEND Orthopaedic Surgery
DX: M19.011 Primary osteoarthritis, right shoulder (principal); E78.2 Mixed hyperlipidemia; Z87.891 Personal history of nicotine dependence; Z79.899 Other long term (current) drug therapy
CPT/HCPCS: 01638; 64415; 76000; 76000-26; 97165-GO; 97535-GO; A9270-GY; C1713; C1769; C1776; J0665; J0690; J1885; J2003; J2250; J2405; J2704; J2795; J3010; J3490; J7120